=== PATIENT | female | born 1985 ===

== ENCOUNTER 2017-05-11 18:56 | Outpatient (CLI) | payer BC ==
[~2017-05-11] VITALS: Ht 175.3 cm; Wt 75.9 kg
[2017-05-11 19:18] VITALS: BP 121/83; PULSE 90; TEMP 97.7
[2017-05-11] MEDS ORDERED: FLINTSTONES1 CTB PO (19:25)
[2017-05-11 19:43] VITALS: BP 121/83; PULSE 90; TEMP 97.7
[2017-05-11 22:14] VITALS: BP 120/79; PULSE 100; TEMP 98.3
== END 2017-05-11 22:55 | disposition home or self-care (01) ==
LOC: LDRO 18:56
DX: O62.9 Abnormality of forces of labor, unspecified (principal); Z3A.37 37 weeks gestation of pregnancy

== ENCOUNTER 2017-05-12 14:16 | Outpatient (CLI) | payer BC ==
[~2017-05-12] VITALS: Ht 175.3 cm; Wt 86.8 kg
[~2017-05-12 14:16] MED LIST: FLINTSTONES1 CTB PO
[2017-05-12 14:32] VITALS: BP 120/61; PULSE 81; TEMP 98.6
[2017-05-12 15:00] VITALS: BP 120/61; PULSE 81; TEMP 98.6
== END 2017-05-12 16:10 | disposition home or self-care (01) ==
LOC: LDRO 14:16 → LDR 14:20 → LDRO 16:10
DX: O62.9 Abnormality of forces of labor, unspecified (principal); Z3A.38 38 weeks gestation of pregnancy
CPT/HCPCS: OP

== ENCOUNTER 2017-05-20 08:23 | Inpatient (IN) | payer BC ==
[~2017-05-20] VITALS: Ht 175.3 cm; Wt 86.8 kg
[2017-05-21] VITALS (30 sets, daily range): BP systolic 102–139; BP diastolic 62–87; PULSE 64–97; TEMP 97.9–98.3
[2017-05-21 07:53] LABS: BASO % 0.5 % (0.0-2.0); EOS # 0.2 (0.0-0.7); EOS % 2.2 % (0-4.0); GRAN # 4.2 (1.4-6.5); GRAN % 56.1 % (42.2-75.2); HEMOGLOBIN 12.4 g/dl (12.5-16.0); LYMPH # 2.5 (1.2-3.4); LYMPH % 33.4 % (20.0-51.0); MEAN CELL VOLUME 97 fl (80.0-100.0); MEAN CORPUSCULAR HEMOGLOBIN 33 pg (27.0-31.0); MEAN CORPUSCULAR HGB CONC 35 g/dl (33.0-37.0); MEAN PLATELET VOLUME 11.7 fl (7.4-10.4); MONO # 0.5 (0.1-0.6); MONO % 7.3 % (1.7-9.3); PLATELET COUNT 187 K/mm3 (130-400); RED BLOOD COUNT 3.72 M/mm3 (4.10-5.30); REDCELL DISTRIBUTION WIDTH-CV 13.2 % (11.5-14.5); WHITE BLOOD COUNT 7.4 K/mm3 (4.8-10.8)
[2017-05-21 07:55] LABS: HEMATOCRIT 35.9 % (37.0-47.0)
[2017-05-22 04:00] VITALS: BP 111/66; PULSE 68; TEMP 97.6
[2017-05-22 08:30] VITALS: BP 118/70; PULSE 72; TEMP 97.1
[2017-05-22] MEDS ORDERED: PERCOCET 325 MG1 TA2 PO (09:18)
[2017-05-22] MEDS ORDERED: IBU600 MG PO (09:18)
== END 2017-05-22 17:00 | disposition home or self-care (01) | DRG 775 ==
LOC: OB 05-21 07:01 → LDR 05-21 07:01 → OB 05-21 14:45
PROVIDERS: Obstetrics & Gynecology
PROC: 10E0XZZ Delivery of Products of Conception, External Approach (ICD-10-PCS; principal; 2017-05-21)
PROC: 0KQM0ZZ Repair Perineum Muscle, Open Approach (ICD-10-PCS; 2017-05-21)
PROC: 3E033VJ Introduction of Other Hormone into Peripheral Vein, Percutaneous Approach (ICD-10-PCS; 2017-05-21)
DX: O75.89 Other specified complications of labor and delivery (principal); O70.1 Second degree perineal laceration during delivery; Z3A.39 39 weeks gestation of pregnancy; Z37.0 Single live birth
CPT/HCPCS: J2210; J2590; J2791; J7120